=== PATIENT | male | born 1965 | race Caucasian/White ===

== ENCOUNTER 2021-03-26 09:11 | Outpatient (CLI) | payer BC, SELFPAY ==
--- NOTE | 2021-03-26 09:16 | RAD_ITS ---
STUDY: X-RAY - ESOPHAGUS (BARIUM SWALLOW) WITH FLUOROSCOPY REASON FOR EXAM: Male, 55 years old. DYSPHAGIA TECHNIQUE: 16 view(s) of the esophagus were obtained following swallowing of barium. FLUOROSCOPY TIME (if supplied): (31 seconds) minutes/seconds COMPARISON: None. FINDINGS: There is no demonstrated esophageal foreign body. There is evidence of a motility disorder of the mid and distal esophagus with tertiary contractions. There is circumferential narrowing at the gastroesophageal junction. The patient ingested a 12 mm tablet of barium. The tablet is trapped at the gastroesophageal junction. Normal visualized aortic arch and descending thoracic aorta. Normal visualized pulmonary parenchyma. Normal visualized osseous structures of the thorax. 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 Circumferential narrowing at the gastroesophageal junction with trapping of the 12 mm tablet of barium. Endoscopic correlation is recommended. Electronically Signed: Raji Grijalva MD at 11:59 EST , Service support ,
== END 2021-03-26 23:59 | disposition short-term general hospital (02) ==
LOC: RAD 09:14
PROVIDERS: PCP Family Medicine; Referring Provider Otolaryngology; Visit Provider Otolaryngology
DX: R13.13 Dysphagia, pharyngeal phase (principal)
CPT/HCPCS: 74221

== ENCOUNTER 2021-06-17 07:47 | Day surgery (SDC) | payer BC, SELFPAY ==
[2021-06-17] VITALS (7 sets, daily range): BP systolic 141–190; BP diastolic 62–91; PULSE 66–83; RESP 16–18; TEMP 36.6–37.2; O2SAT 98–100; BMI 37.6
--- NOTE | 2021-06-17 07:55 | PCM.HP.BLA ---
History and Physical Date of Admission: 06/17/21 55 M who presents to the office today for trouble swallowing. Referred by ENT for evaluation of dysphagia. He does not feel that food becomes lodged, however it takes about two hours to eat a meal because he eats at a slower pace and requires liquids to get food to pass into stomach. Reports cough and reflux first this in the morning. Stroke around 2011 without long-term effects. ENT reports weakness/paralysis of the tongue and weight loss, however denies this in clinic today. 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 Neurologist does not feel that he had a stroke as reported. Barium Swallow 03.26.21 found motility disorder of esophagus with tertiary contractions of mid and distal portion of the esophagus. Circumferential narrowing at gastroesophageal junction with trapping of the barium tablet. Endoscopy recommended. Gastroenterology history includes hiatal hernia. Medical history includes diabetes, hyperlipidemia, hypertension, myocardial infarction, progressive neurological disorder, thyroid dysfunction, renal failure, rhinitis. ROS ENT ENT: Positive for difficulty swallowing Gastro GI: Positive for difficulty swallowing and feeling full early Exam Const General: cooperative and comfortable Nutritional Appearance: average body habitus and well nourished [facility] Head: normal to inspection Ears: hearing grossly normal bilaterally Nose: external nose normal Face and sinus: normal facial exam Mouth: oral mucosae normal Throat: posterior oropharynx normal Eyes General: appearance normal, both eyes and all related structures Neck Neck: normal visual inspection Chest Chest palpation & inspection: normal inspection of the chest and normal palpation of entire chest wall Resp Effort & Inspection: normal respiratory effort Auscultation: Bilateral: Clear to Auscultation Cardio Palpation: normal PMI Rate: regular rate Rhythm: regular rhythm GI Inspection: normal to inspection Auscultation: normal bowel sounds Percussion: normal to percussion Palpation: no hepatosplenomegaly Skin General: no rashes or lesions noted Neuro General: patient alert Extrem General: normal to inspection Psych Affect: normal affect Quality Reporting Tobacco Screening ([facility] 138) Smoking Status: Former smoker Assessment and Plan Assessment and Plan (1) Dysphagia: Plan - Dr. Stern Friend, DO: The differential diagnosis for his esophageal dysphagia does include esophageal stricture, esophageal web, Schatzki's ring, erosive esophagitis, eosinophilic esophagitis ,Agudelo's esophagus with dysplasia versus neoplasia. He should undergo an EGD for evaluation of upper GI tract. He was explained alternatives, risk, benefits including not withstanding, infection, sepsis, perforation, need for surgery and . He will have an ASA of 3 per the procedure. (2) Weight loss: Status: Acute Plan - Dr. Stern Friend, DO: His weight loss is concerning. He has never had a colonoscopy. I stressed to him that he needs a colonoscopy to evaluate his lower GI tract in the setting of weight loss. Especially since he is passed a screening age. He said that he will think about it. hopefully we can get him to change his mind for future. (3) Bloating: Status: Acute Plan - Dr. Stern Friend, DO: The differential diagnosis would include gastroparesis, peptic ulcer disease, gastritis. He is concerned that he has diabetes for so many years and it has been uncontrolled. We should get an ultrasound to evaluate liver disease and he should also have a gastric emptying study. I have re-examined the patient. There are no clinical changes since date of exam.
[2021-06-17] MEDS: Lactated Ringers 1,000 ML 15 ML IV (08:05)
--- NOTE | 2021-06-17 08:45 | EGD_PTH ---
PATIENT: CLAUDETTE OBANDO LOC: [facility] U#:[id number] AGE/SX: 55/M ROOM: RE06/17/[address]: Dr. Jarred David DO : 1965 BED: DIS: 06/17/2021 SPEC #: [id number] RECD: 06/17/21 10:52 STATUS: REID JAE #: [id number] CHAVEZ: 06/17/21 08:[address]: Jarred David DEPT: SURGICAL PATHOLOGY RECD BY: Niharika Dickinson ENTERED: 06/17/21 12:23 SP TYPE: EGD BIOPSY OT DR: Dr. Geraldo Woods MD Tissues: A - Duodenum, NOS B - Gastric mucous membrane C - Gastric mucous membrane D - Esophagus, NOS Procedures: Special Stain Group II Surgery Specimen Level IV Alcian Blue/PAS (control) HEADER OPERATION: EGD ([facility]) PRE-OP DIAGNOSIS: Dysphagia, weight loss, bloating TISSUE SUBMITTED: A ? Duodenum biopsy, B ? Gastric ulcer biopsy, C ? Gastric body biopsy, D ? Distal esophagus biopsy MICROSCOPIC DIAGNOSIS A. Duodenum, biopsy: A fragment of duodenal mucosa with mild Edward gland hyperplasia and nonspecific chronic inflammation. B. Gastric ulcer, biopsy: Fragments of gastric mucosa with ulceration and moderate chronic active gastritis. See comment. C. Gastric body, biopsy: Moderate chronic active gastritis. See comment. D. Distal esophagus, biopsy: A fragment of gastroesophageal mucosa with mild chronic inflammation. Intestinal metaplasia (goblet cell metaplasia) not identified. See comment. SJ:rg 06/18/2021 COMMENT B. The results of immunohistochemistry for Helicobacter pylori will be reported separately ([id number]). C. A fragment of gastroesophageal mucosa is also noted in the specimen and may represent contaminant from specimen D. The results of immunohistochemistry for Helicobacter pylori will be reported separately ([id number]). D. Alcian blue/PAS stain with matched control is used in the evaluation of the specimen. MICROSCOPIC DESCRIPTION Slides are reviewed. GROSS DESCRIPTION A - Received in fixative is one container labeled with the patient's name and designated duodenum biopsy. The specimen consists of one irregular fragment of light seals soft tissue that measures 0.5 x 0.3 x 0.1 cm. The specimen is totally submitted in one cassette. B - Received in fixative is one container labeled with the patient's name and designated gastric ulcer biopsy. The specimen consists of multiple irregular fragments of light seals soft tissue that in aggregate measure 0.6 x 0.5 x 0.1 cm. The specimen is totally submitted in one cassette. C - Received in fixative is one container labeled with the patient's name and designated gastric body biopsy. The specimen consists of multiple irregular fragments of light seals soft tissue that in aggregate measure 1 x 0.7 x 0.1 cm. The specimen is totally submitted in one cassette. D - Received in fixative is one container labeled with the patient's name and designated distal esophagus biopsy. The specimen consists of one irregular fragment of light seals soft tissue that measures 0.4 x 0.4 x 0.1 cm. The specimen is totally submitted in one cassette. / SJ:rg 06/17/2021 TC:3 CPT: 50531 x4, 06335
--- NOTE | 2021-06-17 08:45 | IMM_PTH ---
PATIENT: CLAUDETTE OBANDO LOC: [facility] U#:[id number] AGE/SX: 55/M ROOM: RE06/17/[address]: Dr. Jarred David DO : 1965 BED: DIS: 06/17/2021 SPEC #: [id number] RECD: 06/17/21 13:18 STATUS: REID JAE #: [id number] CHAVEZ: 06/17/21 08:[address]: Jarred David DEPT: IMMUNOHISTOCHEMISTRY RECD BY: Leti Adams ENTERED: 06/17/21 13:19 SP TYPE: IMMUNO OTHR DR: Dr. Geraldo Woods MD Tissues: C - Stomach, NOS B - Stomach, NOS Procedures: H Pylori (initial) PHYSICIAN & INSTITUTION [place] [id number] SPECIMEN INFORMATION: Tissue Source: B ? Gastric ulcer biopsy, C ? Gastric body biopsy Clinical Info: Dysphagia, weight loss, bloating Specimen Number: [id number] B & C CPT code: 89017 x2 METHODOLOGY: Deparaffinized sections of prefer/formalin-fixed tissue or PAP/DQ stained slides are incubated with monoclonal/polyclonal antibodies/oligonucleotide probes. Localization is made via biotin free immunoperoxidase method. Appropriate controls are performed and reacted as expected. Results on target cell population are indicated in the following table: RESULTS: ANTIBODY / CLONE RESULT Block B H Pylori (polyclonal) positive Block C H Pylori (polyclonal) positive These tests were developed and their performance characteristics determined by [facility]. They may not have been cleared or approved by the U.S. Food and Drug Administration. The FDA has determined that such clearance or approval is not necessary. The above immunohistochemical/dualISH markers are ordered and reviewed by the pathologist. INTERPRETATION: B. Gastric ulcer, biopsy: Positive for Helicobacter pylori organisms. C. Gastric body, biopsy: Positive for Helicobacter pylori organisms. SJ:donaldo 06/19/2021
--- NOTE | 2021-06-17 09:21 | OP.CCLET_ITS ---
12/16/2021 Geraldo Woods Re : Upper GI endoscopy procedure for Haroon Vivar Peggy This procedure was performed on Thursday, June 17, 2021. My impressions and recommendations are as follows: Impressions : - LA Grade A reflux esophagitis. Biopsied. - Esophageal mucosal changes consistent with eosinophilic esophagitis. - Gastritis. Biopsied. - Non-bleeding gastric ulcer with no stigmata of bleeding. Biopsied. - Non-bleeding duodenal diverticulum. - Erythematous duodenopathy. Biopsied. Recommendations : - Discharge patient to home. - Advance diet as tolerated today. - Continue present medications. - Use Protonix (pantoprazole) 40 mg PO BID for 8 weeks. My findings are described in the full procedure note, which is enclosed. If I can be of further assistance, please feel free to contact me at . Sincerely, Jarred Friend, DO 06/17/2021 9:20:17 AM This report has been signed electronically.
--- NOTE | 2021-06-17 09:21 | OP.EGD_ITS ---
Patient Name: Haroon Wilburn Procedure Date: 06/17/2021 8:40 AM Date of : 1965 Age: 55 Procedure: Upper GI endoscopy Indications: Epigastric abdominal pain, Dysphagia, Heartburn Providers: Jarred David DO Medicines: See the Anesthesia note for documentation of the administered medications Patient Profile: This is a 55 year old male. Refer to note in patient chart for documentation of history and physical. Patient has symptoms of chronic abdominal distention, chronic dysphagia and dysphagia with solids. Complications: No immediate complications. Procedure: Pre-Anesthesia Assessment: - Prior to the procedure, a History and Physical was performed, and patient medications and allergies were reviewed. The patient is competent. The risks and benefits of the procedure and the sedation options and risks were discussed with the patient. All questions were answered and informed consent was obtained. Patient identification and proposed procedure were verified by the physician in the pre-procedure area. Mental Status Examination: alert and oriented. Airway Examination: normal oropharyngeal airway and neck mobility. Respiratory Examination: clear to auscultation. CV Examination: normal. Prophylactic Antibiotics: The patient does not require prophylactic antibiotics. Prior Anticoagulants: The patient has taken no previous anticoagulant or antiplatelet agents. ASA Grade Assessment: II - A patient with mild systemic disease. After reviewing the risks and benefits, the patient was deemed in satisfactory condition to undergo the procedure. The anesthesia plan was to use moderate sedation / analgesia (conscious sedation). Immediately prior to administration of medications, the patient was re-assessed for adequacy to receive sedatives. The heart rate, respiratory rate, oxygen saturations, blood pressure, adequacy of pulmonary ventilation, and response to care were monitored throughout the procedure. The physical status of the patient was re-assessed after the procedure. After obtaining informed consent, the endoscope was passed under direct vision. Throughout the procedure, the patient's blood pressure, pulse, and oxygen saturations were monitored continuously. The gastroscope was introduced through the mouth, and advanced to the second part of duodenum. The upper GI endoscopy was accomplished without difficulty. The patient tolerated the procedure well. Moderate Sedation: Moderate (conscious) sedation was administered by the endoscopy nurse and supervised by the endoscopist. The patient's oxygen saturation, heart rate, blood pressure and response to care were monitored. Total physician intraservice time was 15 minutes. Scope In: 8:59:08 AM Scope Out: 9:09:52 AM Total Procedure Duration Time 0 hours 10 minutes 44 seconds Findings: LA Grade A (one or more mucosal breaks less than 5 mm, not extending between tops of 2 mucosal folds) esophagitis with no bleeding was found. Biopsies were taken with a cold forceps for histology. Verification of patient identification for the specimen was done. Estimated blood loss was minimal. Mucosal changes including feline appearance, longitudinal furrows and small-caliber esophagus were found in the upper third of the esophagus and in the middle third of the esophagus. Esophageal findings were graded using the Eosinophilic Esophagitis Endoscopic Reference Score (EoE-EREFS) as: Edema Grade 1 Present (decreased clarity or absence of vascular markings), Rings Grade 1 Mild (subtle circumferential ridges seen on esophageal distension), Exudates Grade 0 None (no white lesions seen), Furrows Grade 1 Present (vertical lines with or without visible depth) and Stricture none (no stricture found). Diffuse moderate inflammation characterized by congestion (edema) and erosions was found in the stomach. Biopsies were taken with a cold forceps for histology. Verification of patient identification for the specimen was done. Estimated blood loss was minimal. One non-bleeding superficial gastric ulcer with no stigmata of bleeding was found in the gastric antrum. The lesion was 6 mm in largest dimension. This was biopsied with a cold forceps for histology. Verification of patient identification for the specimen was done. Estimated blood loss was minimal. A 9 mm non-bleeding diverticulum was found in the first portion of the duodenum. Patchy mildly erythematous mucosa without active bleeding and with no stigmata of bleeding was found in the first portion of the duodenum. Biopsies were taken with a cold forceps for histology. Verification of patient identification for the specimen was done. Estimated blood loss was minimal. Impression: - LA Grade A reflux esophagitis. Biopsied. - Esophageal mucosal changes consistent with eosinophilic esophagitis. - Gastritis. Biopsied. - Non-bleeding gastric ulcer with no stigmata of bleeding. Biopsied. - Non-bleeding duodenal diverticulum. - Erythematous duodenopathy. Biopsied. Recommendation: - Discharge patient to home. - Advance diet as tolerated today. - Continue present medications. - Use Protonix (pantoprazole) 40 mg PO BID for 8 weeks. Procedure Code(s): --- Professional --- 09473, Esophagogastroduodenoscopy, flexible, transoral; with biopsy, single or multiple 79888, 59, Moderate sedation services provided by the same physician or other qualified health career development director performing the diagnostic or therapeutic service that the sedation supports, requiring the presence of an independent trained observer to assist in the monitoring of the patient's level of consciousness and physiological status; initial 15 minutes of intraservice time, patient age 5 years or older CPT copyright 2017 [employer]. All rights reserved. The codes documented in this report are preliminary and upon it project coordinator review may be revised to meet current compliance requirements. Jarred David DO 06/17/2021 9:20:17 AM This report has been signed electronically. Number of Addenda: 1 Note Initiated On: 06/17/2021 8:40 AM Addendum Number: 1 Addendum Date: 12/16/2021 6:16:59 AM MAC was used as sedation for this procedure. Jarred David DO 12/16/2021 6:17:06 AM This report has been signed electronically.
[2021-06-17 09:26] LABS: Bedside Glucose 225 mg/dL (74-106)
== END 2021-06-17 23:59 | disposition home or self-care (01) ==
LOC: EN 07:50 → AC 07:51
PROVIDERS: PCP Family Medicine; Referring Provider Family Medicine; Visit Provider Internal Medicine Gastroenterology
PROC: 0DJ08ZZ Inspection of Upper Intestinal Tract, Via Natural or Artificial Opening Endoscopic (ICD-10-PCS; CPT 43235; principal; 2021-06-17 08:40)
DX: R13.10 Dysphagia, unspecified (principal); E11.9 Type 2 diabetes mellitus without complications; K21.00 Gastro-esophageal reflux disease with esophagitis, without bleeding; Z87.891 Personal history of nicotine dependence; K57.10 Diverticulosis of small intestine without perforation or abscess without bleeding; K25.9 Gastric ulcer, unspecified as acute or chronic, without hemorrhage or perforation; E78.5 Hyperlipidemia, unspecified; I10 Essential (primary) hypertension; B96.81 Helicobacter pylori [H. pylori] as the cause of diseases classified elsewhere; K29.50 Unspecified chronic gastritis without bleeding
CPT/HCPCS: 43239; 82962; 88305; 88313; 88342; J7120; C1769

== ENCOUNTER 2021-07-02 11:52 | Outpatient (CLI) | payer BC, SELFPAY ==
[2021-07-02 12:35] LABS: Prothrombin Time (Protime)PT. 13.3 SECONDS (11.7-14.9)
[2021-07-02 12:36] LABS: Erythrocyte Sedimentation Rate 6 mm/hr (0-20)
[2021-07-02 12:37] LABS: Absolute Lymphocyte Count 1.12 X10^3/uL (0.83-4.51); Absolute Neutrophil Count 4.2 X10^3/uL (2.0-7.7); Basophil# 0.08 X10^3/uL; Basophil% 1.3 % (0-1); Eosinophil# 0.21 X10^3/uL; Eosinophils% 3.4 % (0-5); Hematocrit 41.2 % (40-54); Lymphocyte # 1.12 X10^3/ul (0.83-4.51); Lymphocyte % 18.2 % (19-41); Mean Corpuscular Hgb 32.6 pg (27.0-32.0); Mean Corpuscular Volume 95.8 fL (80-94); Mean Platelet Vol. 9.2 fl (6.2-12.0); Monocyte% 8.1 % (0-10); NRBC Flagged by Analyzer 0 % (0-5); Neutrophil # 4.22 X10^3/uL (2.7-7.7); Neutrophil % 68.8 % (47-70); Platelet Count 210 K/mm3 (150-450); RBC Distribution Width CV 12.4 % (11.6-14.6); RBC Distribution Width SD 43.4 fl (35.1-43.9); White Blood Count 6.1 K/mm3 (4.4-11.0)
[2021-07-02 12:46] LABS: ALB/GLOB Ratio 0.9 RATIO (0.9-2.4); AST(SGOT) 21 U/L (15-37); Alanine Aminotransfer ALT/SGPT 30 U/L (16-61); Albumin, Serum 3.6 g/dL (3.2-5.0); Alkaline Phosphatase 76 U/L (45-117); Anion Gap 3 (5-15); BUN 10 mg/dL (7-18); BUN/Creat Ratio 10.3 RATIO (10-20); CRP 4.96 mg/L (0.0-3.0); Calcium,Total 8.7 mg/dL (8.5-10.1); Chloride 100 mmol/L (98-107); Creatinine, Serum 0.97 mg/dL (0.70-1.30); EST Glomerular Filtration Rate 85 mL/min (>60); Est Glom Filt Rate - Afr Amer 103 mL/min (>60); Ferritin 145 ng/mL (26-388); Globulin 3.9 g/dL (2.2-4.2); Glucose 156 mg/dL (74-106); LDH 187 U/L (87-241); Potassium 4.1 mmol/L (3.5-5.1); Protein, Total 7.5 g/dL (6.4-8.2); Sodium Level 136 mmol/L (136-145)
[2021-07-02 12:49] LABS: Hemoglobin A1c 6.8 % (3.8-5.6)
[2021-07-02 13:10] LABS: HIV - WCH Non-Reactive (Nonreactive)
[2021-07-03 15:08] LABS: Anti-Centromere B Ab <0.2 AI (0.0-0.9); Anti-Chromatin <0.2 AI (0.0-0.9); Anti-Jo <0.2 AI (0.0-0.9); Anti-Scleroderma-70 AB <0.2 AI (0.0-0.9); RNP Ab <0.2 AI (0.0-0.9); SJOGREN'S Anti-SS-A test < 0.2 AI (0.0-0.9); SJOGREN'S Anti-SS-B test < 0.2 AI (0.0-0.9); Smith Ab <0.2 AI (0.0-0.9)
[2021-07-03 21:07] LABS: Anti-Mitochondrial AB <20.0 Units (0.0-20.0); Anti-dsDNA Ab 1 IU/mL (0-9)
[2021-07-04 07:08] LABS: Angiotensin Convert Enzyme < 15 U/L (14-82); Ceruloplasmin 22.5 mg/dL (16.0-31.0); Cytoplasmic Ab (C-ANCA) <1:20 titer (Neg:<1:20); HEPATITIS B SURFACE AG Negative (Negative); Hepatitis A IgM Antibody Negative (Negative); Hepatitis B Core AB IgM Negative (Negative)
[2021-07-04 08:41] LABS: AFP, Tumor Marker 2.3 ng/mL (0.0-8.4); Anti-Smooth Muscle ABS 6 Units (0-19); Copper, Serum or Plasma 115 ug/dL (69-132); Haptoglobin 117 mg/dL (29-370); Hep C Antibodies 0.1 s/co ratio (0.0-0.9); Perinuclear Ab (P-ANCA) <1:20 titer (Neg:<1:20)
== END 2021-07-02 23:59 | disposition home or self-care (01) ==
LOC: LAB 11:54
PROVIDERS: PCP Family Medicine; Visit Provider Internal Medicine Gastroenterology
DX: R13.10 Dysphagia, unspecified (principal); R14.0 Abdominal distension (gaseous); R63.4 Abnormal weight loss
CPT/HCPCS: 36415; 80053; 80074; 82105; 82140; 82164; 82390; 82525; 82728; 83010; 83036; 83516; 83615; 85025; 85610; 85652; 86140; 86225; 86235; 86256; 86703

== ENCOUNTER → 2021-07-15 | Outpatient (CLI) | payer BC, SELFPAY ==
--- NOTE | 2021-07-15 08:24 | US_ITS ---
STUDY: ABDOMINAL ULTRASOUND - RIGHT UPPER QUADRANT REASON FOR VISIT: Male, 55 years old liver evaluation -- BLOATING, WEIGHT LOSS, DYSPHAGIA TECHNIQUE: Ultrasound evaluation of the right upper quadrant was performed with real-time and static orozco-scale imaging. TECHNICAL QUALITY: Limited. Examination limited by bowel gas. COMPARISON: None. FINDINGS: Liver: The liver measures 16.7 cm. There is increased echogenicity consistent with fatty infiltration. The bile ducts are within normal limits. There is hepatic color flow. The direction of portal flow is hepatopetal. There is no demonstrated mass lesion. Gallbladder: The patient is status post cholecystectomy. Common Bile Duct (C.B.D.): The common bile duct measures 6.1 mm. Pancreas: There is nonvisualization of the pancreas due to overlying bowel gas. Right Kidney: Normal size of the right kidney. The right kidney measures 12.4 cm x 6 cm x 5.8 cm. Normal renal cortex. The right cortex measures 1.7 cm. There is no demonstrated renal mass or cyst. There is no right hydronephrosis. US/Abdomen Limited IMPRESSION: Borderline hepatomegaly and diffuse fatty infiltration of the liver. Electronically Signed: Raji Grijalva MD at 13:53 EDT ,
--- NOTE | 2021-07-15 08:24 | US_ITS ---
STUDY: ABDOMINAL ULTRASOUND - ELASTOGRAPHY REASON FOR VISIT: Male, 55 years old. Fatty infiltration of the liver. TECHNIQUE: Liver stiffness measurements were obtained on a Storone RS 85 ultrasound machine using a CA 1-7 probe following the SRU guidelines. 3 measurements were obtained using a 2-D-SWE method. The IQR/M was 16% suggesting a quality data set. TECHNICAL QUALITY: Adequate. COMPARISON: Comparison is made with prior study done earlier today. FINDINGS: Liver: Fatty infiltration of the liver. Median liver stiffness measured 20 kPa. US/Elastography Parenchyma/Organ IMPRESSION: Liver stiffness measures 20 kPa compatible with F3-F4 (Moderate to severe liver fibrosis) Metavir score. Electronically Signed: Raji Grijalva MD at 13:55 EDT ,
[2021-07-15 10:06] LABS: Ammonia < 10.0 umol/L (11-32)
== END | disposition home or self-care (01) ==
PROVIDERS: PCP Family Medicine; Referring Provider Internal Medicine Gastroenterology; Visit Provider Internal Medicine Gastroenterology
DX: R13.10 Dysphagia, unspecified (principal); R14.0 Abdominal distension (gaseous); R63.4 Abnormal weight loss
CPT/HCPCS: 76705; 76981; 82140

== ENCOUNTER → 2021-10-21 | Outpatient (CLI) | payer BC, SELFPAY ==
[2021-10-23 15:22] LABS: H. PYLORI STOOL AG Negative (Negative)
== END | disposition home or self-care (01) ==
PROVIDERS: Referring Provider Internal Medicine Gastroenterology; Visit Provider Internal Medicine Gastroenterology
DX: A04.8 Other specified bacterial intestinal infections (principal); R63.4 Abnormal weight loss; R14.0 Abdominal distension (gaseous)

== ENCOUNTER → 2021-10-23 | Outpatient (CLI) | payer BC, SELFPAY ==
[2021-10-23] VITALS (12 sets, daily range): BP systolic 134–187; BP diastolic 52–100; PULSE 59–71; RESP 14–23; TEMP 36.8; O2SAT 95–100; BMI 34.7
--- NOTE | 2021-10-23 | LIVB_PTH ---
PATIENT: CLAUDETTE OBANDO LOC: CT U#:[id number] AGE/SX: 56/M ROOM: RE10/23/[address]: Dr. Jarred David DO : 1965 BED: DIS: 10/23/2021 SPEC #: [id number] RECD: 10/23/21 09:49 STATUS: REID JAE #: [id number] CHAVEZ: 10/23/21 00:[address]: Jarred David DEPT: SURGICAL PATHOLOGY RECD BY: Aide Griffith ENTERED: 10/23/21 10:06 SP TYPE: LIVER BX OT DR: Dr. Tahir Velazco DO Tissues: Liver, NOS Procedures: PAS with Diastase (control) Trichrome (control) Special Stain Group II PAS Stain (control) Surgery Specimen Level V Retic (control) Iron Stain (control) HEADER OPERATION: CT-guided liver biopsy PRE-OP DIAGNOSIS: Fatty liver TISSUE SUBMITTED: Liver 18-gauge x4 MICROSCOPIC DIAGNOSIS Liver, CT-guided core biopsy: Liver parenchymal tissue with focal minimal lobular and portal chronic inflammation. See microscopic description and comment. WESTON:donaldo 10/26/2021 COMMENT Correlation with clinical, laboratory findings and appropriate follow up are necessary. MICROSCOPIC DESCRIPTION Slides are reviewed. The specimen shows liver parenchymal tissue with preserved lobular architecture. Focal minimal lobular chronic inflammation is noted. Hepatocytes show focal cholestasis. Focal dilatation of sinusoids is also noted. Portal area shows focal minimal chronic inflammation. Interface inflammation is not seen. Iron stain shows 1+ iron deposition in the hepatocytes. Trichrome stain does not show significant increased portal or periportal fibrosis. PAS stain with and without diastase does not show any abnormal accumulation of protein. Reticulin stain is unremarkable. All stains are performed with appropriate matched controls. GROSS DESCRIPTION Received is one container labeled with the patient's name and not further designated. The specimen consists of multiple elongated fragments of seals tissue measuring in aggregate 1.5 x 0.5 x 0.1 cm. The specimen is totally submitted in one cassette. / AM:donaldo 10/23/2021 TC:3 CPT: 08375, 56130 x5
[2021-10-23 08:19] LABS: Platelet Count 269 K/mm3 (150-450)
--- NOTE | 2021-10-23 08:19 | CT_ITS ---
PROCEDURE: CT-guided percutaneous liver biopsy. CLINICAL HISTORY: Male, 56 years old. Fatty Liver, Hepatomegaly -- Liver SEDATION: VERSED: 1 mg and FENTANYL 50 mcg intravenous. PERFORMING PHYSICIAN: Cameron Brown MD DATE OF PROCEDURE: 10/23/2021. [place] TRANSPORTATION DRIVER: None. ESTIMATED BLOOD LOSS: Negligible SPECIMENS REMOVED: 4 18-gauge core biopsy specimens sent to laboratory with appropriate orders. COMPLICATIONS: None PT-PTT Levels Checked: Yes TECHNIQUE: The procedure, risks, alternatives and complications were explained to the patient and written informed consent was obtained. Patient oriented dose modulation technique utilized. Patient was positioned supine on the CT table. A timeout procedure was obtained. Contiguous axial CT scan images of the liver were obtained biopsy of the right lobe of the liver was decided after which the access tract was identified. Access site was marked on the patient''s skin after which the overlying skin was prepared in standard, sterile fashion. The skin was anesthetized with 2% lidocaine and a small skin incision was made. Under CT fluoroscopic guidance a 17-gauge coaxial introducer needle was intermittently advanced into the right lobe of the liver. An 18 gauge coaxial core biopsy needle was then inserted through the needle and 4 core biopsy specimens were obtained, placed in formalin and sent to the lab for analysis. Gelfoam embolization of the biopsy site and access tract was performed after which the access needle was removed and sterile dressing was applied. Follow-up evaluation demonstrated no evidence of complications. The patient tolerated the procedure well with no immediate complications and was transferred to recovery in stable condition. CT/Biopsy/Inj or Needle Placement IMPRESSION: Technically successful percutaneous CT guided liver biopsy, Four 18-gauge core biopsy specimens obtained and sent to lab for analysis. Electronically Signed: Cameron Brown MD at 12:36 EDT ,
[2021-10-23 08:30] LABS: International Normalized Ratio 1.1
[2021-10-23 08:31] LABS: Partial Thromboplast Time 27.2 Seconds (24.1-36.2)
[2021-10-23] MEDS: 0.9% Normal Saline 250 ML IV.SOLN. IV (08:51)
[2021-10-23] MEDS: fentaNYL 100 MCG/2 ML Ampul IV (09:14)
[2021-10-23] MEDS: Midazolam 2 MG/2 ML Syringe IV (09:14)
[2021-10-23] MEDS: Lidocaine 2% (10 ml mdv) 10 ML Vial INFILT (09:15)
== END | disposition home or self-care (01) ==
PROVIDERS: Referring Provider Internal Medicine Gastroenterology; Visit Provider Internal Medicine Gastroenterology
DX: R16.0 Hepatomegaly, not elsewhere classified (principal); K76.0 Fatty (change of) liver, not elsewhere classified
CPT/HCPCS: 47000; 36415; 77012; 85049; 85610; 85730; 88307; 88313; 99156

== ENCOUNTER 2021-11-19 06:16 | Day surgery (SDC) | payer BC, SELFPAY ==
[2021-11-19] VITALS (11 sets, daily range): BP systolic 117–160; BP diastolic 61–90; PULSE 52–68; RESP 16–18; TEMP 36.4–36.8; O2SAT 92–98; BMI 34.9
--- NOTE | 2021-11-19 07:04 | PCM.HP.BLA ---
History and Physical Date of Admission: 11/19/21 CLAUDETTE OBANDO, is a 56 M who presents to the office today for review liver biopsy result. Accompanied by his daughter. He reports return of difficulty swallowing, has to drink lots of water when eating, feels like food and water are having trouble passing lower esophagus, water may come back up. No longer on pantoprazole. The dysphagia was resolved after EGD 06/17/21. Stool has been soft for the past month, bowels are regular. No abd pain or bloating. Liver fibrosis -- Liver stiffness measures 20 kPa compatible with F3-F4 (Moderate to severe liver fibrosis) Metavir score. Liver biopsy was done on 10/23/21--chronic inflammation, hepatocytes show focal cholestasis; 1+ iron deposition in the hepatocytes.? No longer drinks alcohol, used to drink tall boys--estimates no more than a 6 pack per day, drank to try to sleep. H pylori -- Treated for H pylori with quadruple therapy, f/u stool test 10/23/21 was negative for H pylori Claudette established with this clinic 04.30.21 with referral from his ENT provider for further evaluation of dysphagia, weight loss and bloating. At time of presentation it would take him two hours to eat a meal due to the amount of swallowing and liquids he felt he needed. Stroke around 2011 without long-term effects. 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 Barium Swallow 03.26.21 found motility disorder of esophagus with tertiary contractions of mid and distal portion of the esophagus. Circumferential narrowing at gastroesophageal junction with trapping of the barium tablet. EGD performed 06.17.21 finding LA Grade A reflux esophagitis; changes consistent with EOE; gastritis in the gastric body; esophageal inflammation without metaplasia; non-bleeding gastric ulcer without stigmata of bleed with active gastritis; non-bleeding duodenal diverticulum; erythematous duodenopathy; Edward gland hyperplasia and inflammation of the duodenum. H Pylori Positive. 07/15/21 US/Abdomen Limited IMPRESSION: Borderline hepatomegaly and diffuse fatty infiltration of the liver. ? 07/15/21 US/Elastography Parenchyma/Organ IMPRESSION: Liver stiffness measures 20 kPa compatible with F3-F4 (Moderate to severe liver fibrosis) Metavir score. 10/23/21 Liver Biopsy MICROSCOPIC DIAGNOSIS Liver, CT-guided core biopsy: ?Liver parenchymal tissue with focal minimal lobular and portal chronic inflammation. ?See microscopic description and comment MICROSCOPIC DESCRIPTION Slides are reviewed. The specimen shows liver parenchymal tissue with preserved lobular architecture.? Focal minimal lobular chronic inflammation is noted.? Hepatocytes show focal cholestasis.? Focal dilatation of sinusoids is also noted.? Portal area shows focal minimal chronic inflammation.? Interface inflammation is not seen.? Iron stain shows 1+ iron deposition in the hepatocytes.? Trichrome stain does not show significant increased portal or periportal fibrosis.? PAS stain with and without diastase does not show any abnormal accumulation of protein.? Reticulin stain is unremarkable.? All stains are performed with appropriate matched controls ROS Const Constitutional: Positive for weakness and weight change; No fatigue ENT ENT: Positive for difficulty swallowing Gastro GI: Positive for bloating, change in bowel habits, diarrhea, difficulty swallowing, excessive flatus and nausea/dyspepsia; No abdominal pain, belching, change in stool character, coffee ground emesis, constipation, cramping, heartburn, feeling full early, incontinent of stools, Vomiting blood/hematemesis, Blood in stool, loose stools, Black,tarry stools, pain with swallowing, vomiting or other Musc Musculoskeletal: Positive for abnormal gait, joint pain and back pain Skin Skin: No yellowing of the eye or itchy eyes Neuro Neurology: Positive for abnormal gait and weakness Psych Psychiatric: Positive for anxiety and No depression Endo Endocrine: Positive for weight change; No fatigue Aller/Imm Allergy/Immunologic: No itchy eyes Kaden/Lymp Hematologic/Lymphatic: Positive for easy bruising; No easy bleeding Exam Const General: cooperative and comfortable Nutritional Appearance: overweight Orientation: alert, awake and oriented x3 HENMT Head: normal to inspection Eyes General: appearance normal, both eyes and all related structures Resp Effort & Inspection: normal respiratory effort GI Inspection: normal to inspection Palpation: soft Skin General: no jaundice Neuro Speech: speech normal Psych Mood: euthymic mood Affect: normal affect Quality Reporting Tobacco Screening ([facility] 138) Smoking Status: Former smoker Assessment and Plan Assessment and Plan (1) 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 Because of the iron deposition we will test for hemochromatosis, although that finding could be due to DM or alcohol. Will call daughter with results per their preference. (2) H. pylori infection: ?Status:?Acute ?Plan: Resolved with quadruple therapy (3) Liver fibrosis: ?Status:?Acute ?Plan: Discussed liver biopsy result as above Start vitamin E and ursodiol to treat inflammation. Also reviewed treatment includes control of DM, weight mgmt Repeat liver elastography in 6 mos (4) Dysphagia: ?Status:?Acute ?Plan: Dysphagia had resolved after EGD but has returned, rx to resume pantoprazole and remain on it indefinitely, will schedule f/u EGD to reeval the dysphagia as well as to ensure gastric ulcers have resolved, f/u 2 wks later ? ? ? Orders: Orders Ferritin Today R89.6 - Abnormal cytological findings in specimens from other organs, systems and tissues ? Iron Binding Capacity,Total Today R89.6 - Abnormal cytological findings in specimens from other organs, systems and tissues ? Iron+Iron Binding Capacity Today R89.6 - Abnormal cytological findings in specimens from other organs, systems and tissues ? Miscellaneous Lab Procedure Today R89.6 - Abnormal cytological findings in specimens from other organs, systems and tissues ? Transferrin Today R89.6 - Abnormal cytological findings in specimens from other organs, systems and tissues ? Medications: New vitamin E (dl, acetate) 180 mg? PO BID 180 caps 1RF ? ? ursodiol 300 mg? PO BID 180 caps 1RF ? ? Discontinued sucralfate ?? Discontinued Reason:? Pt no longer taking 10 mL? PO BID 1,000 mL 1RF ? ? I have re-examined the patient. There are no clinical changes since date of exam.
[2021-11-19] MEDS: Lactated Ringers 1,000 ML 15 ML IV (07:08)
[2021-11-19 07:30] LABS: Bedside Glucose 192 mg/dL (74-106)
--- NOTE | 2021-11-19 11:40 | OP.EGD_ITS ---
Patient Name: Haroon Wilburn Procedure Date: 11/19/2021 7:33 AM Date of : 1965 Age: 56 Procedure: Upper GI endoscopy Indications: Dysphagia Providers: Jarred David DO Medicines: Monitored Anesthesia Care Patient Profile: This is a 56 year old male. Refer to note in patient chart for documentation of history and physical. Patient has symptoms of chronic dysphagia. Complications: No immediate complications. Procedure: Pre-Anesthesia Assessment: - Prior to the procedure, a History and Physical was performed, and patient medications and allergies were reviewed. The patient is competent. The risks and benefits of the procedure and the sedation options and risks were discussed with the patient. All questions were answered and informed consent was obtained. Patient identification and proposed procedure were verified by the physician in the pre-procedure area. Mental Status Examination: alert and oriented. Airway Examination: normal oropharyngeal airway and neck mobility. Respiratory Examination: clear to auscultation. CV Examination: normal. Prophylactic Antibiotics: The patient does not require prophylactic antibiotics. Prior Anticoagulants: The patient has taken no previous anticoagulant or antiplatelet agents. ASA Grade Assessment: II - A patient with mild systemic disease. After reviewing the risks and benefits, the patient was deemed in satisfactory condition to undergo the procedure. The anesthesia plan was to use moderate sedation / analgesia (conscious sedation). Immediately prior to administration of medications, the patient was re-assessed for adequacy to receive sedatives. The heart rate, respiratory rate, oxygen saturations, blood pressure, adequacy of pulmonary ventilation, and response to care were monitored throughout the procedure. The physical status of the patient was re-assessed after the procedure. After obtaining informed consent, the endoscope was passed under direct vision. Throughout the procedure, the patient's blood pressure, pulse, and oxygen saturations were monitored continuously. The Endoscope was introduced through the mouth, with the intention of advancing to the stomach. The scope was advanced to the gastric cardia before the procedure was aborted. Medications were given. The upper GI endoscopy was accomplished without difficulty. The patient tolerated the procedure well. Scope In: 7:43:42 AM Scope Out: 7:48:06 AM Total Procedure Duration Time 0 hours 4 minutes 24 seconds Findings: The middle third of the esophagus was moderately tortuous. No gross lesions were noted in the gastric fundus. Impression: - Tortuous esophagus. - No gross lesions in the stomach. - No specimens collected. Recommendation: - Discharge patient to home. - Resume previous diet. - Continue present medications. Procedure Code(s): --- Professional --- 68015, 52, Esophagogastroduodenoscopy, flexible, transoral; diagnostic, including collection of specimen(s) by brushing or washing, when performed (separate procedure) CPT copyright 2017 [employer]. All rights reserved. The codes documented in this report are preliminary and upon director of reimbursement review may be revised to meet current compliance requirements. Jarred David DO 11/19/2021 11:39:37 AM This report has been signed electronically. Number of Addenda: 1 Note Initiated On: 11/19/2021 7:33 AM Addendum Number: 1 Addendum Date: 12/25/2021 6:16:28 AM MAC was used as sedation for this procedure. Jarred David DO 12/25/2021 6:16:31 AM This report has been signed electronically.
--- NOTE | 2021-11-19 11:40 | OP.CCLET_ITS ---
12/25/2021 Tahir Velazco Do Re : Upper GI endoscopy procedure for Haroon Wilburn Dear Dr. Velazco This procedure was performed on November. My impressions and recommendations are as follows: Impressions : - Tortuous esophagus. - No gross lesions in the stomach. - No specimens collected. Recommendations : - Discharge patient to home. - Resume previous diet. - Continue present medications. My findings are described in the full procedure note, which is enclosed. If I can be of further assistance, please feel free to contact me at . Sincerely, Jarred David, 11/19/2021 11:39:37 AM This report has been signed electronically.
== END 2021-11-19 09:19 | disposition home or self-care (01) ==
LOC: EN 06:20 → AC 06:21
PROVIDERS: Visit Provider Internal Medicine Gastroenterology
PROC: 0DJ08ZZ Inspection of Upper Intestinal Tract, Via Natural or Artificial Opening Endoscopic (ICD-10-PCS; CPT 43235; principal; 2021-11-19 07:25)
DX: R13.10 Dysphagia, unspecified (principal); E11.9 Type 2 diabetes mellitus without complications; Z87.891 Personal history of nicotine dependence; K74.00 Hepatic fibrosis, unspecified
CPT/HCPCS: 43235; 82962; J7120; J2405

== ENCOUNTER → 2022-07-09 | Outpatient (CLI) | payer MEDICARE, OTHER, SELFPAY ==
--- NOTE | 2022-07-09 08:41 | US_ITS ---
STUDY: ABDOMINAL ULTRASOUND - ELASTOGRAPHY REASON FOR VISIT: Male, 56 years old. Hepatic fibrosis. TECHNIQUE: Liver stiffness measurements were obtained on a [employer] RS 85 ultrasound machine using a CA 1-7 probe following the SRU guidelines. 3 measurements were obtained using a 2-D-SWE method. TheIQR/M was 20 % suggesting a quality data set. TECHNICAL QUALITY: Adequate. COMPARISON: Comparison is made with prior study dated July 15, 2021. FINDINGS: Liver: Heterogeneous hepatic echotexture suggestive of diffuse fatty infiltration. Median liver stiffness measured 14.6 kPa. Abdomen: There is no demonstrated mass lesion. US/ABD Limited w/ Elastography IMPRESSION: Liver stiffness measures 14.6 kPa compatible with F3-F4 (Moderate to severe liver fibrosis) Metavir score. Electronically Signed: Raji Grijalva MD at 8:55 EDT ,
== END | disposition home or self-care (01) ==
PROVIDERS: Referring Provider Nurse Practitioner Adult Health; Visit Provider Nurse Practitioner Adult Health
DX: K74.00 Hepatic fibrosis, unspecified (principal)
CPT/HCPCS: 76705; 76981

== ENCOUNTER 2022-08-02 08:59 | Outpatient (RCR) | payer OTHER, MEDICARE, SELFPAY ==
[2022-08-02 09:09] VITALS: BP 123/48; PULSE 55; RESP 16; TEMP 36.4; BMI 36.3
--- NOTE | 2022-08-02 12:01 | PCM.WC.HP ---
History of Present Illness Date of Service: 08/02/22 Chief Complaint: Left lateral plantar foot ulcer History of Wound: Patient is a 56 year old male who presents to the wound center with an ulcer on his left foot that he has had for a couple of months. He was referred to us by Dr. Duran, recreation therapy aides teacher, who has been managing this ulcer with Silvadene cream. Patient is a Type 1 diabetic who states his last HgA1c was 7.1. He states that he wears diabetic shoes with a cut out on the sole to prevent rubbing. He has a history of Type 1 DM, GERD, liver fibrosis/fatty liver, HTN, hypothyroidism, neuropathy, history of CVA and former smoker. He states that he had vascular studies done in [place] years ago and they were fine. Patient present to the wound center for further evaluation and treatment. Progress of Wound: Left lateral plantar foot ulcer with significant amount of slough on a bony prominence. [facility] Medical History Alcohol use Allergic rhinitis Anemia Anemia Back pain CVA (cerebral vascular accident) Depression Deviated septum Diabetes Dietary restriction Difficulty swallowing Easy bruising Fatty liver Former smoker Fracture of lumbar spine Gastric reflux Hepatomegaly History of edema History of irregular heartbeat History of neuropathy History of renal disease History of stress test Hx of fracture of leg Hyperlipidemia Hypertension Hypertrophy of nasal turbinates Injury of back Insulin dependent diabetes mellitus Myocardial infarction Progressive neurological disorder Renal failure Shortness of breath on exertion Thyroid dysfunction Uses wheelchair Home Medications cholecalciferol (vitamin D3) 25 mcg (1,000 unit) tablet (Vitamin D3) 2,000 unit PO DAILY 05/08/14 [History Last Taken Unknown] levothyroxine 112 mcg tablet 224 mcg PO MOTUWETHFRSA 05/08/14 [History Last Taken 11/19/21] lisinopril 40 mg tablet 5 mg PO DAILY 05/08/14 [History Last Taken 11/19/21] furosemide 40 mg tablet 20 mg PO DAILY 09/17/15 [History Last Taken Unknown] metoprolol tartrate 25 mg tablet 25 mg PO DAILY 09/17/15 [History Last Taken 11/19/21] pantoprazole 40 mg tablet,delayed release 40 mg PO QAM #90 tabs 10/29/21 [Rx Last Taken 09/01/22] ursodiol 300 mg capsule 300 mg PO BID #180 caps 06/08/22 [Rx Last Taken Unknown] vitamin E (dl, acetate) 180 mg (400 unit) capsule 180 mg PO BID #180 caps 06/08/22 [Rx Last Taken Unknown] fluticasone propionate 50 mcg/actuation nasal spray,suspension intranasal 08/02/22 [History Last Taken Unknown] rosuvastatin 10 mg tablet 10 mg PO DAILY 08/02/22 [History Last Taken Unknown] amoxicillin 875 mg-potassium clavulanate 125 mg tablet 1 tab PO Q12H 14 days #28 tabs 08/06/22 [Rx Last Taken Unknown] Allergy/AdvReac Type Severity Reaction Status Date / Time ibuprofen [From Motrin] AdvReac Nausea Verified 07/16/22 12:55 Surgical History History of cardiac catheterization Hx laparoscopic cholecystectomy Hx of circumcision Hx of esophagogastroduodenoscopy Social History Smoking Status: Never smoker ROS Constitutional Constitutional: Denies chills, fever(s) or headache(s) Eyes Eyes: Reports none ENT HEENT: Reports none Cardiovascular Cardiovascular: Reports numbness in extremities; Denies chest pain, dyspnea or fatigue Respiratory/Chest Respiratory/Chest: Denies cough, dyspnea or shortness of breath at rest Gastrointestinal Gastrointestinal: Reports bloating and dyspepsia; Denies diarrhea or nausea Genitourinary Genitourinary: Reports as per HPI Musculoskeletal Musculoskeletal: Reports difficulty walking and numbness Integumentary Integumentary: Reports skin ulcer Neurologic Neurologic: Reports numbness; Denies abnormal speech or frequent falls Psychiatric Psychiatric: Denies anxiety, cognitive impairment or confusion Endocrine Endocrinology: Reports as per HPI Hematologic/Lymphatic Hematologic/Lymphatic: Reports none Vital Signs Vital Signs Vital Signs: 08/02/22 09:09 Temperature 97.6 F L Temperature Source Temporal Pulse Rate 55 L Respiratory Rate 16 Blood Pressure 123/48 H Blood Pressure Mean 73 Blood Pressure Source Monitor Blood Pressure Position Sitting Blood Pressure Location Left Arm Oxygen Delivery Method Room Air Weight Weight: 276 lb Body Mass Index (BMI) 36.3 Physical Exam Const alert, oriented x3 and no apparent distress General Appearance: cooperative HEENT normocephalic Head and Scalp: atraumatic Eyes General Eye: normal appearance of both eyes Neck full ROM Lymph Lymphatic: no lymphedema noted Resp normal respiratory effort, normal air movement and clear to auscultation bilaterally Effort and Inspection: able to speak in complete sentences Cardio regular rate and regular rhythm Peripheral Pulses: dorsalis pedis pulses present GI normal to inspection, nondistended, normoactive bowel sounds, soft to palpation and non-tender Back/Spine normal ROM Extremity full ROM and normal capillary refill Peripheral Pulses: Yes dorsalis pedis pulses present Skin Wound Narrative: left lateral plantar foot ulcer with seals slough near a bony prominence. He has decreased sensation in his feet with palpation. Neuro oriented x3 and moves all extremities Psych mental status grossly normal, thought process normal and cooperative Debridement Note Debridement Note Wound debrided: lateral, plantar foot ulcer Laterality: Left Type of Debridement: Excisional debridement Anesthesia Used: 4% Lidocaine Solution and 5% Lidocaine Gel Depth: Down to and including healthy tissue and in the subcutaneous layer Percentage of wound debrided: 100 Instrument Used: 5mm curette Tissue Removed: Devitalized tissue and slough Severity: Fat Layer Exposed Amount of bleeding with debridement: Mild Bleeding Controlled with: Pressure and Compression and gauze Patient tolerated procedure: Patient tolerated procedure well Post-Debridement Measurements and Additional Note: Post-Debridement Measurements/Treatment - Nurse 1 - General Ulcer Assessment Start: 08/02/22 09:08 Freq: Status: Active Protocol: .MAX Activity Type Activity Date Activity User E-sign Co-sign Detail Recorded Client Recorded Date Recorded By Document 08/02/22 09:09 [facility] [id number] 08/02/22 09:25 [facility] 08/02/22 09:09 - Today's Visit Information Type of service Initial Visit Arrival Mode Ambulatory Transfer Assistance None Accompanied by daughter Patient Identification Verified (Name & Yes ) Patient Requires Transmission-Based No Precautions Finger Stick Blood Sugar(mg/dl) (if 127 indicated): Blood Sugar Stated by Patient Height and Weight Height 6 ft 1 in Weight 276 lb Weight in Pounds 276.0 lbs Weight Measurement Method Stated by Patient Body Mass Index (BMI) 36.3 BMI Classification Obese BSA - Madai 2.47 Vital Signs Temperature (97.8 F-99.1 F) 97.6 F L Temperature Source Temporal Pulse Rate (60-100) 55 L Pulse Location Monitor Respiratory Rate (12-18) 16 Respiratory rate source Observation Oxygen Delivery Method Room Air Blood Pressure (90/60-120/80) 123/48 H Blood Pressure Mean 73 Source Monitor Position Sitting Blood Pressure Location Left Arm History Since Last Visit- (Skip if this is Patient's initial visit) Left Footwear Diabetic Shoe Right Footwear Diabetic Shoe Pain Scale: 0-10 Numeric Is Patient Pain Free? Yes Lower Extremity Assessment/ Foot Assessment/ Toe Nail Assessment Right -Posterior Tibial Doppler Multiphasic -Dorsalis Pedis Doppler Multiphasic -Extremity Color Red -Hair Growth on Legs No -Hair Growth on Toes No -Temperature of Extremity Cool -Thick Yes -Discolored Yes -Deformed No -Improper Length & Hygeine No Left -Posterior Tibial Doppler Multiphasic -Dorsalis Pedis Doppler Multiphasic -Extremity Color Red -Hair Growth on Legs No -Hair Growth on Toes No -Temperature of Extremity Cool -Thick Yes -Discolored Yes -Deformed No -Improper Length & Hygeine No Neuropathy Assessment Feet - Top Side and Bottom <Entered> (a) Communication Assessment Preferred language [place] [employer] Sealing Machine Operator Required No Able to Read Yes Able to Write Yes Communication Tools None Right Hearing Abillity Normal Left Hearing Abillity Normal Visual Assistive Devices None Teaching Assessment Preferences Verbal,Written, Audio/Visual, Demonstration Barriers to Learning None Readiness To Learn Excellent Willingness to Engage in Self Management High Activies Readiness to Engage in Self Management High Activities Anxiety Level Calm Cooperation Cooperative Perception Coherent Interest in Health Problem Asks Questions Education Importance Acknowledges Need Does Patient Smoke tobacco or other No substances Smoking Status Never smoker Is Patient Diabetic Yes Functional Assessment Recent Decline in Ability to Perform Denies Any Declines Culture/Restorationism/Ear Specialist Cultural/Restorationism Needs that may affect No Treatment Plan Teaching: Wound Center *Welcome to the Wound Center -Person Taught Patient,Family -Teaching Method Discussion -Response to teaching Verbalize understanding Welcome to the Wound Care Center [place] (a) 1 - - - Nurse 1 - General Ulcer Measurement Start: 08/02/22 09:08 Freq: Status: Active Protocol: Activity Type Activity Date Activity User E-sign Co-sign Detail Recorded Client Recorded Date Recorded By Document 08/02/22 09:09 [facility] [id number] 08/02/22 09:25 [facility] 05/15/23 09:09 Wound Center Nurse 1 #4- L LAT FOOT -Combined with other wound No -Current Size (cm) - Length 0.3 -Current Size (cm) - Width 0.3 -Current Size (cm) - Depth 0.3 -Total Square Cm 0.09 -Date of Last Picture (Recall this 08/02/22 field) -Photo Taken Yes -Epithelialization None Present -Tunneling No -Undermining/Tunneling No -Circular Undermining No -Exudate Amt Small -Exudate Type Sanguineous -Wound Margin Distinct, Outline Attached -Granulation Amt None Present (0 %) -Slough/Fibrin Yes -Necrosis Amt Large (67-100%) -Necrotic Tissue Type Adherent Slough -Texture (Shelly-wound Skin Appearance) Assessed, Localized Edema ,Scarring -Moisture (Shelly-wound Skin Appearance) Assessed -Color (Shelly-wound Skin Appearance) Assessed, Erythema -Temperature (Shelly-wound Skin No Abnormality Appearance) (Pt Warm) -Tenderness on Palpation (Shelly-wound No Skin Appearance) -Ulcer Cleansing Rinsed/ Irrigated with Saline -Foul Odor after Cleansing No -Anesthetic Used 5% Lidocaine Gel Lower Limb Edema Present Yes Right Calf (cm) 32.2 Right Ankle (cm) 22.2 Left Calf (cm) 30.2 Left Ankle (cm) 22.5 WC - Nurse 2 - General Ulcer CM Notes Start: 08/02/22 09:08 Freq: Status: Active Protocol: Activity Type Activity Date Activity User E-sign Co-sign Detail Recorded Client Recorded Date Recorded By Document 08/02/22 09:48 [id number] 08/02/22 10:02 [facility]IR[facility] 08/02/22 09:48 Wound Center Nurse 2 #4- L LAT FOOT -Time 09:53 -Correct Patient Yes -Correct Side, Site, Position Yes -Correct Procedure Yes -Procedure Performed Yes -Type of Procedure Debridement -Clinical Debridement Subcutaneous -Tissue Removed Subcutaneous -Post Debridement (cm) - Length 0.7 -Post Debridement (cm) - Width 1.3 -Post Debridement (cm) - Depth 0.2 -Total Square (Post) (cm) 0.91 -Area of Debridement (cm) - Length 0.7 -Area of Debridement (cm) - Width 1.3 -Total Square (Area) (cm) 0.91 -Tunneling No -Undermining/Tunneling No -Circular Undermining No -Wound/Ulcer Outcome Not Healed -Ulcer Cleansing Rinsed/ Irrigated with Saline -Foul Odor after Cleansing No -Bioengineered Tissue No -Bleeding Controlled with Pressure -Treatment Response Procedure Tolerated Well -Offloading No -Other Type of Offloading diabetic shoes -Debridement - Subq, 1st 20sq cm Yes Pain Scale: 0-10 Numeric Is Patient Pain Free? Yes - Nurse 3 - General Ulcer D/C NN Start: 08/02/22 09:08 Freq: Status: Active Protocol: Activity Type Activity Date Activity User E-sign Co-sign Detail Recorded Client Recorded Date Recorded By Document 08/02/22 10:21 [facility] [id number] 08/02/22 10:21 [facility] 08/02/22 10:21 Wound Care Center Nurse 3 #4- L LAT FOOT -Ulcer Cleansing Rinsed/ Irrigated with Saline -Foul Odor after Cleansing No -Primary Dressing Applied Promogran Mouna Matter -Primary Dressing Covered/Secured with Dry Gauze & Roll Gauze, Secured with Tape -Promogran Mouna Matter 1 Treatment Response Procedure Tolerated Well Pain Scale: 0-10 Numeric Is Patient Pain Free? Yes WC - Visit Discharge Discharge Condition Stable Ambulatory Status Ambulatory Transportation Private Auto Charges/Coding Visit Charges Office Visits / Consults: 17587 OV L4 Est (25 modifier) Procedures Integumentary 111xxx-113xx: 88020 Mar subq tissue 20 sq cm/< Assessment/Plan Assessment/Plan (1) Non-healing ulcer of left foot with fat layer exposed: CODE(S): L97.522 - Non-pressure chronic ulcer of other part of left foot with fat layer exposed (2) Ulcer of left foot with fat layer exposed: CODE(S): L97.522 - Non-pressure chronic ulcer of other part of left foot with fat layer exposed (3) Diabetic neuropathy associated with type 1 diabetes mellitus: CODE(S): E10.40 - Type 1 diabetes mellitus with diabetic neuropathy, unspecified PLAN: Plan Patient evaluated at the wound healing center today. Wound care - Silver alginate covered with gauze daily after washing foot with soap and water. Compression - He sometimes wears compression stockings on bilateral legs. Will order an x-ray of his left foot for further evaluation. Will obtain arterial and venous studies for further evaluation of his circulation. A wound culture was obtained today, 08/02/22.? A positive culture will necessitate antibiotic therapy. Follow up one week. Call or come in sooner if develop any concerns. Greater than 30 minutes was spent evaluating patient, reviewing records, planning and documenting care.
--- NOTE | 2022-08-06 13:08 | WC ---
Spoke to Regine the daughter of the patient informing her that Che Ray NP called in Augmentin to [facility] in [place]. She said her is a hospital pharmacy technician at [facility] in [place] and will have the ATB transferred to his pharmacy to fill for the patient. She states the wound is looking really good and pleased with his results and feel the wound in shrinking. Patient is scheduled to see Che next week.
== END 2022-08-18 23:59 | disposition home or self-care (01) ==
LOC: WC 08:59
PROVIDERS: Referring Provider Podiatrist Foot & Ankle Surgery; Visit Provider Nurse Practitioner Family
DX: E10.621 Type 1 diabetes mellitus with foot ulcer (principal); L97.522 Non-pressure chronic ulcer of other part of left foot with fat layer exposed; E10.42 Type 1 diabetes mellitus with diabetic polyneuropathy; Z79.4 Long term (current) use of insulin; Z87.891 Personal history of nicotine dependence; E78.5 Hyperlipidemia, unspecified; R60.0 Localized edema; I10 Essential (primary) hypertension; K21.9 Gastro-esophageal reflux disease without esophagitis; E07.9 Disorder of thyroid, unspecified
CPT/HCPCS: 11042; 87070; 87075; 87077; 87186; 87205; 99214; G0463

== ENCOUNTER 2022-08-24 08:51 | Outpatient (RCR) | payer OTHER, MEDICARE, SELFPAY ==
[2022-08-19 00:11] VITALS: BP 123/48; PULSE 55; RESP 16; TEMP 36.4; BMI 36.3
--- NOTE | 2022-08-24 09:10 | ART_ITS ---
Reason For Study: Ulcer Procedure A bilateral lower extremity continuous wave Doppler with analog waveform analysis,segmental pressures,and ankle brachial indexes without exercise. Left Segmental Pressures Left brachial= 151mmHg. Left posterior tibial artery = >254mmHg. Left dorsalis pedis artery = >254mmHg. Left digit = 145 mmHg. The left dorsalis pedis waveforms are triphasic. The left posterior tibial artery waveforms are triphasic. Right Segmental Pressures Right posterior tibial artery = 240mmHg. Right dorsalis pedis artery = >254mmHg. Right digit = 174 mmHg. The right dorsalis pedis waveforms are triphasic. The right posterior tibial artery waveforms are triphasic. Indices The right ankle brachial index by the dorsalis pedis is NC. The right ankle brachial index by the posterior tibial artery is 1.59. The right digital-brachial index is 1.15. The left ankle brachial index by the dorsalis pedis is NC. The left ankle brachial index by the posterior tibial artery is NC. The left digital-brachial index is 0.96. VL/Lower Ext Art Exam w/o Exercis Interpretation Summary Triphasic Doppler waveforms are noted at ankle level bilaterally. Pulse-volume recordings appear satisfactory at all levels bilaterally. The resting right ankle-brachial index is supra-normal. The resting left ankle-brachial index could not be determined due to the non-compre ssibility of the vasculature at ankle level. Digital-brachial indices are normal bilaterally. There is evidence of arterial calcification at ankle level bilaterally. There i s no evidence of arterial occlusive disease in the lower extremities bilaterally. Ordering Physician: Che Mckeon Referring Physician: Tahir Velazco Performed By: Hoa Caceres RVT
--- NOTE | 2022-08-24 09:10 | VDLE_ITS ---
Reason For Study: Edema RIGHT LEFT CFV is compressible, spontaneous, phasic, CFV is compressible, spontaneous, phasic, competent and demonstrates normal competent, and demonstrates normal augmentation. augmentation. FV is compressible, spontaneous, phasic, FV is compressible, spontaneous, phasic, competent and demonstrates normal competent and demonstrates normal augmentation. augmentation. POP V is compressible, spontaneous, phasic, POP V is compressible, spontaneous, phasic, competent and demonstrates normal competent and demonstrates normal augmentation. augmentation. T/P Trunk is compressible. T/P Trunk is compressible. PTV is compressible. PTV is compressible. RT PerV is compressible. LT PerV is compressible. SFJ is competent and measures 0.71 x 0.75 cm. SFJ is competent and measures 0.94 x 0.97 cm. GSV proximal thigh measures 0.50 x 0.52 cm. GSV proximal thigh measures 0.56 x 0.56 cm. GSV above knee is competent. GSV above knee is competent. GSV at knee measures 0.35 x 0.35 cm. GSV at knee measures 0.40 x 0.39 cm. GSV below knee is INCOMPETENT for greater GSV below knee is INCOMPETENT for greater than 0.5 seconds. than 0.5 seconds. SSV at junction is competent and measures SSV at junction is competent and measures 0.31 x 0.33 cm. 0.38 x 0.39 cm. Procedure This is a venous duplex using B-mode, color flow and spectral Doppler. Exam performed in department. Patient was scanned in reverse Trendelenburg position during reflux assessment. A preliminary report was called and/or faxed to . VL/Venous Duplex US - Juanito Extrem Interpretation Summary Deep veins of the lower extremities are bilaterally patent and compressible seg mentally. There is no evidence of deep vein thrombosis on either side. Valvular competence appears in tact within the proximal deep venous systems bilaterally. The great saphenous veins appear bila terally patent and compressible segmentally. Sapheno-femoral junctions are bilaterally competent . The right great saphenous vein appears competent above the knee. The right great saphenous vein appears incompetent below the knee. The left great saphenous vein appears competent above the knee. The left great saphenous vein appears incompetent below the knee. Small saphenous veins are pa tent and competent bilaterally. Ordering Physician: Che Mckeon Referring Physician: Tahir Velazco Performed By: Hoa Caceres RVT
== END 2022-09-17 08:08 | disposition home or self-care (01) ==
LOC: WC 08:51
PROVIDERS: Referring Provider Podiatrist Foot & Ankle Surgery; Visit Provider Physician Assistant
DX: R60.0 Localized edema (principal); L97.529 Non-pressure chronic ulcer of other part of left foot with unspecified severity; I77.1 Stricture of artery
CPT/HCPCS: 93923; 93970

== ENCOUNTER → 2023-01-07 | Outpatient (CLI) | payer OTHER, MEDICARE, SELFPAY ==
--- NOTE | 2023-01-07 07:56 | US_ITS ---
STUDY: ABDOMINAL ULTRASOUND - RIGHT UPPER QUADRANT; ELASTOGRAPHY REASON FOR VISIT: Male, 57 years old. Fatty infiltration of the liver. TECHNIQUE: Ultrasound evaluation of the right upper quadrant was performed with real-time and static orozco-scale imaging. Point quantification shear wave elastography was performed ([employer]). TECHNICAL QUALITY: Limited. Examination limited by bowel gas. COMPARISON: Comparison is made with prior examination dated July 09, 2022. FINDINGS: Liver: The liver measures 16.2 cm. There is increased echogenicity consistent with fatty infiltration. The bile ducts are within normal limits. There is hepatic color flow. The direction of portal flow is hepatopetal. There is no demonstrated mass lesion. Median liver stiffness measured 11.5 kPa. Gallbladder: The patient is status post cholecystectomy. Common Bile Duct (C.B.D.): The common bile duct measures 4.3 mm. Pancreas: The pancreas was not visualized due to overlying bowel gas. Right Kidney: Normal size of the right kidney. The right kidney measures 12.4 cm x 5.6 x 5.1 cm. Normal renal cortex. The right cortex measures 1.6 cm. There is no demonstrated renal mass or cyst. There is no right hydronephrosis. US/ABD Limited w/ Elastography IMPRESSION: 1. Liver stiffness measures 11.5 kPa compatible with F2-F3 (Mild to moderate liver fibrosis) Metavir score. Electronically Signed: Raji Grijalva MD at 9:18 EDT ,
== END | disposition home or self-care (01) ==
PROVIDERS: Referring Provider Internal Medicine Gastroenterology; Visit Provider Internal Medicine Gastroenterology
DX: K76.0 Fatty (change of) liver, not elsewhere classified (principal)
CPT/HCPCS: 91200; 76705; 76981